=== PATIENT | male | born 1955 | race Caucasian/White ===

== ENCOUNTER 2021-05-04 06:41 | Outpatient (CLI) | payer MEDICARE, SELFPAY ==
--- NOTE | ~2021-05-04 | NM_ITS ---
EXAMINATION: NM bone scan whole body DATE: 05/04/2021 10:03 INDICATION: Malignant neoplasm of the prostate TECHNIQUE: 26.45 mCi Tc-99m HDP was administered intravenously. Delayed whole-body scintigrams were obtained. COMPARISON: CT abdomen and pelvis dated 05/04/2021 and bone scan dated 09/23/2012 FINDINGS: Mild likely degenerative joint centered uptake at the bilateral sternoclavicular articulations, the m edial and patellofemoral compartments of both knees and at the right ankle. Unchanged mild likely deg enerative uptake at the lower cervical spine. Mild uptake associated with endplate osteophytes on the right at L1-L2, osteophytes at the right 10th costovertebral articulation and associated with a few costosternal articulations. No other suspicious foci of abnormal bone uptake to suggest metastatic di sease. IMPRESSION: 1. No evident metastatic disease. Reviewed, dictated and finalized at location A.
--- NOTE | ~2021-05-04 | CT_ITS ---
EXAMINATION: CT abdomen pelvis w con DATE: 05/04/2021 07:14 INDICATION: Prostate cancer TECHNIQUE: Computed tomography (CT) of the abdomen and pelvis was performed without intravenous contr ast. Automated exposure control and iterative reconstruction technique were employed. Exam dose: 680 .18 mGy-cm total exam DLP. COMPARISON: None. FINDINGS: Normal heart size. No pericardial or pleural effusion. The lung bases are clear. There is a small sliding hiatal hernia. Diffuse hepatic steatosis. No hepatic space-occupying mass lesion. The gallbladder appears normal. No bile duct or pancreatic duct dilatation. No pancreatic mass lesion. Normal splenic size. Normal morphology of the adrenal glands. 1.3 cm and 9 mm right renal cysts. No renal space occupying mass lesion or urinary tract calculus or hydroureteronephrosis is noted otherwise. The urinary bladder is unremarkable. Prostate gland appears absent. There is abdominal aortic calcification but no aneurysm. No intraperitoneal or retroperitoneal or pel adrian mass lesion or adenopathy or ascites. Diverticulosis of the colon; no CT evidence of diverticulitis. No bowel obstruction, bowel wall thick ening, pneumatosis or intraperitoneal free air. Diffuse idiopathic skeletal hyperostosis of the thoracic spine. There is moderately prominent degener ative disc disease at L5-S1 and mild degenerative disease at the remaining lumbar interspaces. Bilateral hip osteoarthritis. No suspicious osteolytic or osteoblastic lesions suggest metastatic disease. IMPRESSION: Status post prostatectomy; no abdominal or pelvic mass or lymphadenopathy or osteosclero tic metastases are noted. Small sliding hiatal hernia Hepatic steatosis Right renal cysts Diverticulosis of the colon Reviewed, dictated and finalized at Location A. Reviewed, dictated and finalized at location A. IMPRESSION: Status post prostatectomy; no abdominal or pelvic mass or lymphade nopathy or osteosclerotic metastases are noted. Small sliding hiatal hernia Hepatic steatosis Right renal cysts Diverticulosis of the colon
[2021-05-04 07:07] LABS: Estimated Glomerular Filt Rate 47
== END 2021-05-04 06:42 | disposition home or self-care (01) ==
PROVIDERS: PCP Family Medicine; Visit Provider Urology
DX: C61 Malignant neoplasm of prostate (principal); Z90.79 Acquired absence of other genital organ(s); K44.9 Diaphragmatic hernia without obstruction or gangrene; K76.0 Fatty (change of) liver, not elsewhere classified; N28.1 Cyst of kidney, acquired; K57.90 Diverticulosis of intestine, part unspecified, without perforation or abscess without bleeding
CPT/HCPCS: 74177; 78306; A9561; Q9967

== ENCOUNTER 2022-11-11 11:52 | Outpatient (CLI) | payer MEDICARE, SELFPAY ==
--- NOTE | ~2022-11-11 | PE_ITS ---
EXAMINATION: PET_PETPSMAST_PT DATE: 11/11/2022 15:08 INDICATION: Malignant neoplasm of the prostate TECHNIQUE: 9.624 mCi of pipflufolastat F-18 (18-F-DCFPyL) was administered i.v. Low dose computed to mography (CT) images were acquired from the base of the brain to the base of the brain to the proxima l thighs for attenuation correction and anatomic localization. Positron emission tomography (PET) jaiden ges were acquired in the same distribution beginning 98 minutes after injection. Images including fus ed PET/CT images were reconstructed in axial, coronal, and sagittal planes. Automated exposure contro l technique was employed. The dose-length product was 583.45mGy-cm. COMPARISON: CT abdomen and pelvis and bone scan dated 05/04/2021 FINDINGS: Head/neck: Typical pattern of symmetric physiologic increased activity in the lacrimal, parotid and submandibula r glands as well as along the mucosa of the nasal and oral cavities, the kennedy-, naso- and hypopharynx, the glottis and esophagus. This includes increased activity at a small ectopic the positive parotid tissue overlying the left masseter muscle. No pathologically enlarged cervical lymphadenopathy or pato picious foci of increased uptake in the visualized head or neck. Chest: Mild discoid atelectasis at the posterior sulci of the bilateral lower lobes. Calcified nodules at th e right lower lobe and lingula along with calcified right hilar lymph nodes consistent with old granu lomatous disease. No suspicious pulmonary nodules, pneumonia, pulmonary edema or pleural effusion. He art size is normal. Atherosclerotic coronary artery calcific location. Thoracic aorta is normal in ca liber. No pathologically enlarged or PSMA avid thoracic lymphadenopathy. Small sliding-type hiatal he rnia. Subtle small focus of minimal the SMA activity centered at the articulation of the posterior ri ght sixth rib and the right T6 transverse process which is without radiologic correlate. There are br idging osteophytes at multiple levels in the spine, consistent with diffuse idiopathic skeletal hyper ostosis (DISH). Abdomen/pelvis/proximal thighs: Physiologic renal accumulation and excretion of activity in the kidneys, bladder and along portions o f ureters. Normal degree and slightly heterogenous pattern of increased uptake throughout the liver a nd spleen without radiologic correlate or dominant PSMA avid lesion. The gallbladder, pancreas and bi lateral adrenal glands are normal. Moderate uptake scattered throughout the bowels with typical duode nal and proximal jejunal predominance and without radiologic correlate, also likely physiologic. Stat us post prostatectomy. Small focus of mild PSV may have activity without radiologic correlate at the anterior L4 vertebral body. No other abnormal foci of increased uptake or pathologically enlarged lym phadenopathy in the abdomen, pelvis or proximal thighs. IMPRESSION: 1. A couple small foci of mild FDG activity slightly greater than the blood flow in the blood pool at the articulation of the T6 right transverse processes and right posterior sixth rib as well as at th e anterior aspect of the L4 vertebral body, both without radiologic correlate. Findings are indetermi adrian for early osseous metastatic disease. 2. No other PSMA avid soft tissue lesions suspicious for metastatic disease. Reviewed, dictated and finalized at location A. IMPRESSION: 1. A couple small foci of mild FDG activity slightly greater than the blood armand w in the blood pool at the articulation of the T6 right transverse processes an d right posterior sixth rib as well as at the anterior aspect of the L4 vertebr al body, both without radiologic correlate. Findings are indeterminate for byron y osseous metastatic disease. 2. No other PSMA avid
== END 2022-11-11 11:53 | disposition home or self-care (01) ==
PROVIDERS: PCP Family Medicine; Visit Provider Urology
DX: C61 Malignant neoplasm of prostate (principal)
CPT/HCPCS: 78815; A9595

== ENCOUNTER 2023-07-28 12:37 | Outpatient (CLI) | payer MEDICARE, SELFPAY ==
--- NOTE | 2023-07-28 13:08 | ECG_ITS ---
Measurements Intervals [place] Rate: 89 P: 75 DE: 173 QRS: -34 QRSD: 96 T: 0 QT: 339 QTc: 413 Interpretive Statements SINUS RHYTHM INFERIOR INFARCT, AGE INDETERMINATE BORDERLINE ST-T WAVE ABNORMALITY- ANTEROLAT/HIGH LAT LEADS BASELINE ARTIFACT- I, II, III, AVR, AVL, AVF, V1, V3-V6 ABNORMAL ECG NO PREVIOUS ECG AVAILABLE FOR COMPARISON Electronically Signed On 07-28-2023 14:58:50 [employer] by Jason Kwong D.O.
== END 2023-07-28 12:38 | disposition home or self-care (01) ==
LOC: ANHSURGERY 12:41
PROVIDERS: PCP Family Medicine; Visit Provider Surgery
DX: Z01.812 Encounter for preprocedural laboratory examination (principal); Z01.810 Encounter for preprocedural cardiovascular examination; K43.2 Incisional hernia without obstruction or gangrene; E78.00 Pure hypercholesterolemia, unspecified; R94.31 Abnormal electrocardiogram [ECG] [EKG]
CPT/HCPCS: 36415; 86850; 86900; 86901; 93005

== ENCOUNTER 2023-07-30 00:36 | Day surgery (SDC) | payer MEDICARE, SELFPAY ==
--- NOTE | 2023-07-28 09:42 | PC.NURSE ---
Report to the Outpatient Waiting Room, entrance under the green pavilion located off [facility], at time __1200 on date __07/30/23 . Planned Procedure Time: _1400 . Time changes happen often and if your time is changed the preop area will call you the afternoon before. - You and your visitor will be asked to self-screen and do not enter if you have any COVID symptoms. - A mask is optional within the hospital at this time. Patients may have clear liquids (water, carbonated beverages, clear teas, apple juice) until 3 hours prior to surgery(11 AM) with a maximum of 20 ounces. - No food from midnight until time of surgery - Infants may have breast milk until 4 hours before surgery, infant formula 6 hours prior to surgery. - Children will be allowed to drink immediately following surgery. If applicable, please bring a bottle or sippy cup to assist with drinking. Juice, water, soda, and popsicles are readily available. For infants on formula, please bring formula the day of surgery. Pacifiers are allowed. Take the following medications with a SIP of water the morning of surgery: __NONE DO NOT STOP ANY OF YOUR OTHER PRESCRIPTION MEDICATIONS PRIOR TO SURGERY ?EXCEPT THE FOLLOWING Medications to discontinue per physician MULTIVITAMIN HOLD 3 DAYS PRE OP .LAST DOSE_07/28/23 Please no make-up, nail swiss, hairspray, perfume, deodorant, or body powder the day of surgery. No jewelry (including any body piercings) or valuables the day of surgery, leave them at home. Please take a shower or bath the night before, or the morning of, surgery with an antibacterial soap. Wear comfortable, loose fitting clothing. Children are encouraged to wear pajamas. - Jewelry must be removed prior to entering the operating room. Rings and piercings that are not removed may be cut off. - The hospital will not accept responsibility for valuables. - Please leave all valuables, including medications, at home the day of surgery. If you are going home after surgery, a licensed escort car driver must drive you home. - NO public transportation without another adult if you receive anesthesia. - We recommend that an adult stay with you for 24 hours following discharge. - We also recommend that you do not drive, make important decision, drink alcoholic beverages, or take any drugs that were not prescribed by your health care provider for at least 24 hours after your discharge time. For Pediatric surgeries, we recommend two adults accompany the child home. Follow any additional instructions given to you from your surgeon. If you or anyone in your household have experienced Covid symptoms in the past week, please notify your surgeon or the nurse liaison at the phone number below for possible testing. Telephone instructions given to __PATIENT and asked if any additional questions and then verbalized understanding. Patient advised to call surgeon office or pre surgery nurse liaison [phone] if any additional questions.
[2023-07-28 09:50] VITALS: BMI 29.2
[2023-07-30 11:34] VITALS: BP 138/83; PULSE 75; RESP 16; TEMP 36.7; O2SAT 98
[2023-07-30] MEDS: LACTATED RINGERS 1,000 ML 30 ML IV CONT ×2 (11:45→15:27)
[2023-07-30] MEDS: ACETAMINOPHEN 500 MG TABLET 1000 MG PO (11:47)
[2023-07-30] MEDS: KETOROLAC 15 MG/ML VIAL (*BKC) IV PUSH (11:50)
--- NOTE | 2023-07-30 12:33 | P.PNAN_ITS ---
Anes - Initial Pre Proc Eval Procedure: Operation Date: 07/30/23 14:00 Proposed Procedures p Laparoscopic Incisional Hernia Repair with Mesh, Davinici Assisted - Dylan Young DO Date/Time: 07/30/23 12:33 Surgeon: Dylan Young DO Pre Op Diagnosis: incisional hernia(3cm) Patient Data Age: 67 Gender: M Height: 1.7 m Weight: 86.3 kg Last Vital Signs Temp 36.7 C 07/30/23 11:34 Pulse 75 07/30/23 11:34 Resp 16 07/30/23 11:34 BP 138/83 07/30/23 11:34 Pulse Ox 98 07/30/23 11:34 O2 Del Method Room Air 07/30/23 11:34 Allergies Allergy/AdvReac Type Severity Reaction Status Date / Time No Known Allergies Allergy Verified 07/30/23 11:25 Home Medications Medication Instructions Recorded Confirmed Type atorvastatin 20 mg tablet 10 mg PO DAILY 07/28/23 07/28/23 History multivit with minerals-iron 18 1 tablet PO DAILY 07/28/23 07/28/23 History mg-folic ac 400 mcg-vit K 25 mcg tablet (Adults Multivitamin) Patient hx anesthesia problems: none Family hx anesthesia problems: none Results Review: All pre-operative results and documents have been reviewed as part of the pre- operative evaluation. [facility] Past Medical History Medical History History of prostate cancer Surgical History Surgical History History of appendectomy History of cataract removal with insertion of prosthetic lens History of prostatectomy History of tonsillectomy Family History Family History Father Heart disease Mother Diabetes mellitus Other Cancer Cerebrovascular accident Hypertension Social History Social History Smoking status: Never smoker Alcohol intake: current Alcohol use details: rarely Living arrangements: with family Occupation/Education: retired Spiritual care concerns: No Anes - Eval Final PreProcedure Day of Procedure 07/30/23 12:33 Patient weight: overweight Lungs: clear to auscultation Airway: Mallampati scale class II Neurological: alert and oriented Last oral intake: >/= 8 hours ASA classification: II Emergent: no Anesthetic plan: proceed Anesthesia type and monitoring: general ETT and standard monitoring Results Review: All pre-operative results and documents have been reviewed as part of the pre- operative evaluation. Informed Consent: The patient's anesthetic plan and its attendant risks and benefits were discussed with the patient/family/POA. Questions were solicited and answers provided to the satisfaction of the patient/family/POA.
--- NOTE | 2023-07-30 12:56 | WPDHPUPDATE1 ---
History and Physical Update Update Date/Time: 07/30/23 12:56 History and Physical has been reviewed, including an updated exam of the patient. There are NO changes in the patient's condition. Risks, benefits, and alternatives have been discussed and questions answered. Patient agrees to proceed with procedure.
[2023-07-30] MEDS: ceFAZolin 2 GM/D5W 50 ML 2 GM/50 ML BAG IVPB (13:54)
[2023-07-30] MEDS: BUPIVACAINE/EPINEPHRINE 0.5% 30 ML VIAL INFILTRATE (14:26)
--- NOTE | 2023-07-30 15:14 | W.PM.PROC2 ---
Procedure Note - Detailed Date of Procedure 07/30/23 Pre-op Diagnosis incisional hernia Post-op Diagnosis Same (3 cm incisional periumbilical hernia) Procedure Performed Laparoscopic 3 cm incisional hernia repair with mesh, da Efrain assisted Surgeon Dylan Young, DO Anesthesia General and Local (0.5% bupivacaine with epinephrine) Indications This is a 67-year-old man who presented with a bulge at his umbilicus that had been present for about the past 10 years. This has become slightly larger with time. He was overall asymptomatic than noticing bulge and it becoming larger. He has a history of a robotic prostatectomy and the hernia starts at the inferior edge of the scar just above his umbilicus. Discussions were made with the patient about treatment options and decision was made to proceed with robotic assisted laparoscopic incisional hernia repair with mesh. Findings Laparoscopic incisional hernia repair was performed. The hernia measured approximately 3 cm in length. It was located at the umbilicus and extending just cephalad within the scar from the robotic prostatectomy. A robotic intraperitoneal onlay mesh technique was utilized for repair. A Ventralight ST 15 cm x 10 cm mesh was placed centered on the hernia defect and this was secured to the abdominal wall circumferentially using 2-0 Stratafix running absorbable suture. Description of Procedure Procedure as well as risks, benefits, and alternatives were discussed with the patient. Written consent was obtained and placed in chart prior to procedure. Patient was brought back to surgical suite. He was placed supine on operating table. Time-out was done to confirm patient and procedure. He was then intubated by the anesthesia department. A bump was placed under his left hip, and the bed was flexed slightly to extend the space between his costal margin and iliac crest. His abdomen was prepped and draped in sterile fashion using chlorhexidine prep. A 5 millimeter incision was made in the left upper quadrant, and a 5 millimeter Optiview trocar was advanced through the abdominal layers under direct visualization. Once inside the abdominal cavity, carbon dioxide insufflation was used to create a pneumoperitoneum. His abdomen was inspected. An 8 millimeter incision was made in the left lower quadrant, and an 8 millimeter robotic trocar was placed under direct visualization. Another 8 millimeter incision was made in the left lateral abdomen, and an 8 millimeter robotic trocar was placed under direct visualization. 0.5% bupivacaine with epinephrine was infiltrated around each port site. The 5 millimeter port was removed, and an 8 mm robotic trocar was placed under direct visualization. The robotic arms were brought up to the patient's bedside and secured to the ports. The camera and instruments were inserted, and I then moved over to the robotic console and took control of the camera and instruments. After careful thorough inspection of the abdominal cavity, I began my dissection at the hernia. The hernia sac and preperitoneal fat was excised using scissors with. I then measured the hernia size. The hernia measured 3 cm. The fascia was closed using an 0-Stratafix running suture in a vertical fashion. A Ventralight ST 15 cm x 10 cm mesh was then placed within the abdominal cavity. This was oriented vertically with the mesh centered on the hernia defect. The mesh was then secured at the center and 4 corners using 3-0 Vicryl simple interrupted sutures. The mesh was then secured to the abdominal wall circumferentially using 2-0 Stratafix running absorbable suture. The repair was inspected, and one final inspection was made around the abdominal cavity. The robotic instruments were then removed, and the robotic arms were disengaged from the trocars. The ports were then removed under direct visualization, the camera was removed, and the pneumoperitoneum was released. The skin of the incisions was
[2023-07-30 15:27] VITALS: BP 144/71; PULSE 75; RESP 16; TEMP 36.3; O2SAT 100
[2023-07-30 15:40] VITALS: BP 162/74; PULSE 79; RESP 17; O2SAT 93
[2023-07-30 15:53] VITALS: BP 114/63; PULSE 74; RESP 10; O2SAT 95
[2023-07-30 15:56] VITALS: BP 152/88; PULSE 72; RESP 15
[2023-07-30 16:25] VITALS: BP 139/82; PULSE 63; RESP 15
== END 2023-07-30 16:40 | disposition home or self-care (01) ==
PROVIDERS: PCP Family Medicine; Visit Provider Surgery
PROC: (CPT 49593; principal; 2023-07-30 14:00)
DX: K43.2 Incisional hernia without obstruction or gangrene (principal); Z85.46 Personal history of malignant neoplasm of prostate
CPT/HCPCS: 49593; S2900; A9270; C1781; J0690; J1100; J1170; J1885; J2250; J2405; J2704; J3010; J7120